=== PATIENT | female | born 2000 | race Asian ===

== ENCOUNTER 2021-08-05 11:56 | Outpatient (CLI) | payer OTHER, SELFPAY ==
--- NOTE | ~2021-08-05 | XR_ITS ---
XR hand RT min 3V DATE: 08/05/2021 12:45 INDICATION: Fall. Second digit swelling, bruising TECHNIQUE: 3 views COMPARISON: None FINDINGS: No fracture or dislocation, periosteal reaction or bone destruction, joint space narrowing, erosive change or chondrocalcinosis. IMPRESSION: Negative Reviewed, dictated and finalized at location A. 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
--- NOTE | ~2021-08-05 | XR_ITS ---
XR wrist RT min 3V DATE: 08/05/2021 12:45 INDICATION: Fall. Wrist pain TECHNIQUE: 4 views COMPARISON: None FINDINGS: No fracture or dislocation, periosteal reaction or bone destruction, joint space narrowing, erosive change or chondrocalcinosis. IMPRESSION: Negative Reviewed, dictated and finalized at location A. 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
== END 2021-08-05 11:57 | disposition home or self-care (01) ==
PROVIDERS: Visit Provider Nurse Practitioner Psychiatric/Mental Health
DX: M25.531 Pain in right wrist (principal); M25.541 Pain in joints of right hand
CPT/HCPCS: 73110; 73130